=== PATIENT | female | born 1955 | race Caucasian/White ===

== ENCOUNTER 2019-09-03 09:33 | Emergency (ER) | payer MEDICARE, BC ==
[~2019-09-03] VITALS: Ht 162.6 cm; Wt 97.7 kg
[2019-09-03 09:37] VITALS: Ht 162.6 cm; Wt 97.7 kg
[2019-09-03] MEDS ORDERED: GLIMEPIRIDE4 MG PO (09:38)
[2019-09-03] MEDS ORDERED: SINGULAIR 4 MG P4 MG PO (09:38)
[2019-09-03] MEDS ORDERED: BISOPROLOL-HCT1 EAC1 PO (09:39)
[2019-09-03] MEDS ORDERED: KEFLEX500 MG PO (09:54)
[2019-09-03 10:17] VITALS: BP 146/74
== END 2019-09-03 10:20 | disposition home or self-care (01) ==
LOC: D.ER 09:33
DX: R05 Cough (principal); R68.89 Other general symptoms and signs

== ENCOUNTER 2020-11-15 11:30 | Outpatient (CLI) | payer MEDICARE, BC ==
[2019-09-03 09:37] VITALS: BMI 37.0
[~2020-11-15 11:30] MED LIST: BISOPROLOL-HCT1 EAC1 PO; GLIMEPIRIDE4 MG PO; KEFLEX500 MG PO; SINGULAIR 4 MG P4 MG PO
== END 2020-11-15 23:59 | disposition home or self-care (01) ==
LOC: D.MAMMO 11:30
PROVIDERS: ATTEND Registered Nurse Emergency
DX: Z12.31 Encounter for screening mammogram for malignant neoplasm of breast (principal)